=== PATIENT | female | born 1980 | race Caucasian/White ===

== ENCOUNTER 2017-06-30 16:33 | Emergency (ER) | payer MEDICAID, OTHER ==
[~2017-06-30] VITALS: Ht 157.5 cm; Wt 74.1 kg
[2017-06-30] MEDS ORDERED: CEPHALEXIN MONOHYDRATE 500 MG CAPSULE PO ONE (17:45)
[2017-06-30] MEDS ORDERED: ACETAMINOPHEN 325 MG TABLET PO ONE (17:45)
[2017-06-30 17:48] VITALS: BP 129/80
== END 2017-06-30 17:54 | disposition home or self-care (01) ==
LOC: EMS 16:36
DX: J34.0 Abscess, furuncle and carbuncle of nose (principal); Z90.49 Acquired absence of other specified parts of digestive tract
CPT/HCPCS: 99283

== ENCOUNTER 2017-07-01 12:56 | Emergency (ER) | payer OTHER ==
[~2017-07-01] VITALS: Ht 154.9 cm; Wt 74.1 kg
[2017-07-01 14:25] VITALS: BP 109/72
== END 2017-07-01 15:24 | disposition home or self-care (01) ==
LOC: EMS 12:58
DX: J34.0 Abscess, furuncle and carbuncle of nose (principal)
CPT/HCPCS: 99283